=== PATIENT | female | born 1990 | race Caucasian/White ===

== ENCOUNTER 2017-02-16 15:33 | Emergency (ER) | payer BC, OTHER ==
[~2017-02-16] VITALS: Ht 162.6 cm; Wt 71.6 kg
[2017-02-16 15:37] VITALS: Ht 162.6 cm; Wt 71.6 kg
[2017-02-16] MEDS ORDERED: ONDANSETRON INJ 2 MG/ML 2 ML VIAL IV STA (15:58)
[2017-02-16] MEDS ORDERED: SODIUM CHLORIDE 0.9% 1000ML 1,000 ML IV ONE ×2 (16:00→19:45)
[2017-02-16] MEDS ORDERED: ACETAMINOPHEN IV 100 ML IV ONE (16:00)
[2017-02-16 16:51] LABS: BASO % 0.1 %; BASO ABS # 0.01 K/uL (0-0.2); COMPLETE YES; HEMATOCRIT 40.8 % (37-47); IG% 0.3 %; LYMPH % 4.4 %; LYMPH ABS # 0.51 K/uL (1.2-3.4); MEAN CELL VOLUME 88.1 fL (80-100); MEAN CORPUSCULAR HEMOGLOBIN 30.9 pg (25-34); MEAN PLATELET VOLUME 10.8 fL (7.4-10.4); MONO % 4.5 %; NEUT % 90.7 %; PLATELET COUNT 223 K/uL (130-400); RED BLOOD COUNT 4.63 M/uL (4.2-5.4); WHITE BLOOD COUNT 11.67 K/uL (4.8-10.8)
[2017-02-16 17:13] LABS: BUN/CREATININE RATIO 13.2 (10-20); CALCIUM 8.8 mg/dl (8.5-10.1); CREATININE 0.67 mg/dl (0.60-1.20); POTASSIUM 3.5 mmol/L (3.5-5.1)
[2017-02-16 17:15] LABS: ALB/GLOB RATIO 1.1 (0.9-2)
[2017-02-16 17:23] LABS: URINE APPEARANCE CLEAR (CLEAR); URINE BILIRUBIN NEG (NEG); URINE COLOR YELLOW; URINE NITRITE NEG (NEG); URINE SPECIFIC GRAVITY 1.022 (1.000-1.030); UROBILINOGEN NEG (NEG); ZZUR CULT IF INDIC CLEAN CATCH NO
[2017-02-16 17:25] LABS: MANUAL MICROSCOPIC REQUIRED? NO; REVIEW REQ? NO
--- NOTE | 2017-02-16 18:02 | DIAGNOSTIC IMAGING REPORT ---
ULTRASOUND OF THE PELVIS CLINICAL HISTORY: Pelvic pain. COMPARISON STUDY: Pelvic CT dated 06/17/2013. TECHNIQUE: Real-time, grayscale, and color flow sonography of the pelvis is performed both transabdominally and endovaginally. Images are reviewed in the transverse and longitudinal planes. FINDINGS: Uterus: The uterus is normal in size and echotexture, measuring 7.8 x 4.1 x 5.7 cm. Endometrium: The endometrium is normal in appearance, and the endometrial stripe is normal in thickness measuring up to 0.8 cm. Ovaries: The ovaries are normal in size and morphology. The right ovary measures 3.3 x 2.1 x 2.1 cm and the left ovary measures 2.9 x 1.7 x 1.8 cm. There are small ovarian follicles. Normal Doppler waveforms are shown within both ovaries. Pelvis: There is trace free fluid in the cul-de-sac. No concerning adnexal lesion is seen. IMPRESSION: 1. No acute sonographic abnormality is identified in the pelvis. 2. There is trace and likely physiologic free fluid in the cul-de-sac. Electronically signed by: Kirk Bernal M.D. 02/16/2017 6:01 PM Dictated Date/Time: 02/16/2017 6:00 PM
[2017-02-16] MEDS ORDERED: OPTIRAY 320 IV PRN (18:30)
--- NOTE | 2017-02-16 19:04 | DIAGNOSTIC IMAGING REPORT ---
CT SCAN OF THE ABDOMEN AND PELVIS WITH IV CONTRAST CLINICAL HISTORY: Fever. Lower abdominal pain. COMPARISON STUDY: Abdominal CT dated 06/17/2013. Pelvic ultrasound dated 02/16/2017. TECHNIQUE: Following the IV administration of 119 cc of Optiray 320, CT scan of the abdomen and pelvis is performed from the lung bases to the proximal femora. Images are reviewed in the axial, sagittal, and coronal planes. IV contrast was administered without complication. Automated dose control exposure was utilized. CT DOSE: 375.78 mGy.cm FINDINGS: Lung bases: The heart is normal in size and without pericardial effusion. The lung bases are clear. Bilateral breast implants are noted. Liver: The contrast-enhanced liver is normal in size, contour, and attenuation. Fatty infiltration is seen adjacent to falciform ligament. There is no intrahepatic biliary ductal dilatation. The hepatic veins and portal veins are patent. Gallbladder: Unremarkable. Spleen: Normal in size and attenuation. Pancreas: Unremarkable. Adrenal glands: Unremarkable. Kidneys: The contrast enhanced kidneys are normal in size and without hydronephrosis. A subcentimeter cortical hypodensity in the interpolar right kidney likely represents a cyst but is too small for definitive characterization. The kidneys enhance symmetrically. Abdominal vasculature: The abdominal aorta is normal in course and caliber. Bowel: The small bowel and colon are normal in course and caliber. The appendix is well-visualized and normal. Peritoneum: There is no intraperitoneal free air or abdominal ascites. There is a small fat-containing umbilical hernia. Lymphadenopathy: None. Pelvic viscera: The bladder, uterus, and adnexa are normal as visualized. There are bilateral ovarian follicles. Trace free fluid is seen in the cul-de-sac. Skeletal structures: No lytic or blastic lesions are seen. IMPRESSION: 1. There are no acute infectious or inflammatory findings in the abdomen or pelvis. 2. There is trace and likely physiologic free fluid in the cul-de-sac. Electronically signed by: Kirk Bernal M.D. 02/16/2017 7:02 PM Dictated Date/Time: 02/16/2017 6:58 PM
[2017-02-16] MEDS ORDERED: KETOROLAC TROMETHAMINE 30 MG/ML VIAL IV STA (19:43)
[2017-02-16] MEDS ORDERED: ONDANSETRON HOME PACK 4MG OD TAB PO ONE (19:45)
[2017-02-16 20:27] VITALS: BP 99/69; PULSE 89; TEMP 36.9; O2SAT 97
--- NOTE | 2017-02-16 21:18 | EMERGENCY ROOM VISIT NOTE ---
History First contact with patient: 15:43 Chief Complaint: ABDOMINAL PAIN Stated Complaint: ABD PAIN,FEVER 102 Nursing Triage Summary: pt awoke at 0300am with n/v/d and abd pain [facility] r/o luis migueley History of Present Illness The patient is a 26 year old female who presents to the Emergency Room with complaints of nausea, vomiting, diarrhea, and lower abdominal pain for roughly the past 12 hours. The patient states that she awoke around 3 AM with her symptoms and went to an urgent care clinic today. The patient was referred to the emergency department for evaluation of possible appendicitis. The patient has not had chest pain, chest tightness, shortness of breath. No upper abdominal tenderness. She denies chance of with her last menses being about one month ago. No vaginal drainage, irritation, bleeding, or discharge. The patient is not having dysuric symptoms or flank pain. She rates her current discomfort a 7/10. Her max temperature was 102F. She is not taking anything [id number] for her symptoms. She is without appetite and has not eaten today. She does not identify additional aggravating or alleviating factors. Review of Systems More than 10 systems were reviewed and otherwise negative with the exception of history of present illness. Past Medical/Surgical History Medical Problems: (1) Depression Family History No pertinent family history Social History Smoking Status: Never Smoker Alcohol Use: occasionally Marital Status: single Housing Status: lives with significant other Current/Historical Medications No Active Prescriptions or Reported Meds Allergies Coded Allergies: Codeine (Verified Adverse Reaction, Intermediate, chest pain, 02/16/17) Physical Exam Vital Signs Date Time Temp Pulse Resp B/P Pulse Ox O2 Delivery O2 Flow Rate FiO2 02/16/17 20:27 36.9 89 18 99/69 97 02/16/17 18:58 36.8 93 16 111/70 98 Room Air 02/16/17 17:48 95 16 123/73 98 Room Air 02/16/17 15:37 37.2 110 20 118/78 99 Room Air Pain Rating (0-10): 1.0 Physical Exam VITALS: Vitals are noted on the nurse's note and reviewed by myself. Vital signs stable. GENERAL: Well-developed, well-nourished, white female who appears moderately uncomfortable on exam. Patient is cooperative with the examination. HEAD: Normocephalic atraumatic. HEART: Regular rate and rhythm without murmurs gallops or rubs. LUNGS: Clear to auscultation bilaterally without wheezes, rales or rhonchi. No retractions or accessory muscle use. ABDOMEN: Positive normal bowel sounds x 4. Soft with positive right lower and left lower quadrant tenderness on palpation. No rebound or guarding. No CVA tenderness. MUSCULOSKELETAL: No muscle atrophy, erythema, or edema noted. Full range of motion without joint tenderness in all extremities. No tenderness to palpation. Normal gait. Strength 5/5 throughout. NEURO: Patient was alert and oriented to person place and time. CN II through XII grossly intact Medical Decision & Procedures ER Provider Diagnostic Interpretation: ULTRASOUND OF THE PELVIS CLINICAL HISTORY: Pelvic pain. COMPARISON STUDY: Pelvic CT dated 06/17/2013. TECHNIQUE: Real-time, grayscale, and color flow sonography of the pelvis is performed both transabdominally and endovaginally. Images are reviewed in the transverse and longitudinal planes. FINDINGS: Uterus: The uterus is normal in size and echotexture, measuring 7.8 x 4.1 x 5.7 cm. Endometrium: The endometrium is normal in appearance, and the endometrial stripe is normal in thickness measuring up to 0.8 cm. Ovaries: The ovaries are normal in size and morphology. The right ovary measures 3.3 x 2.1 x 2.1 cm and the left ovary measures 2.9 x 1.7 x 1.8 cm. There are small ovarian follicles. Normal Doppler waveforms are shown within both ovaries. Pelvis: There is trace free fluid in the cul-de-sac. No concerning adnexal lesion is seen. IMPRESSION: 1. No acute sonographic abnormality is identified in the pelvis. 2. There is trace and likely physiologic free fluid in the cul-de-sac. [~ rep ct add3]] ULTRASOUND OF THE PELVIS CLINICAL HISTORY: Pelvic pain. COMPARISON STUDY: Pelvic CT dated 06/17/2013. TECHNIQUE: Real-time, grayscale, and color flow sonography of the pelvis is performed both transabdominally and endovaginally. Images are reviewed in the transverse and longitudinal planes. FINDINGS: Uterus: The uterus is normal in size and echotexture, measuring 7.8 x 4.1 x 5.7 cm. Endometrium: The endometrium is normal in appearance, and the endometrial stripe is normal in thickness measuring up to 0.8 cm. Ovaries: The ovaries are normal in size and morphology. The right ovary measures 3.3 x 2.1 x 2.1 cm and the left ovary measures 2.9 x 1.7 x 1.8 cm. There are small ovarian follicles. Normal Doppler waveforms are shown within both ovaries. Pelvis: There is trace free fluid in the cul-de-sac. No concerning adnexal lesion is seen. IMPRESSION: 1. No acute sonographic abnormality is identified in the pelvis. 2. There is trace and likely physiologic free fluid in the cul-de-sac. CT SCAN OF THE ABDOMEN AND PELVIS WITH IV CONTRAST CLINICAL HISTORY: Fever. Lower abdominal pain. COMPARISON STUDY: Abdominal CT dated 06/17/2013. Pelvic ultrasound dated 02/16/2017. TECHNIQUE: Following the IV administration of 119 cc of Optiray 320, CT scan of the abdomen and pelvis is performed from the lung bases to the proximal femora. Images are reviewed in the axial, sagittal, and coronal planes. IV contrast was administered without complication. Automated dose control exposure was utilized. CT DOSE: 375.78 mGy.cm FINDINGS: Lung bases: The heart is normal in size and without pericardial effusion. The lung bases are clear. Bilateral breast implants are noted. Liver: The contrast-enhanced liver is normal in size, contour, and attenuation. Fatty infiltration is seen adjacent to falciform ligament. There is no intrahepatic biliary ductal dilatation. The hepatic veins and portal veins are patent. Gallbladder: Unremarkable. Spleen: Normal in size and attenuation. Pancreas: Unremarkable. Adrenal glands: Unremarkable. Kidneys: The contrast enhanced kidneys are normal in size and without hydronephrosis. A subcentimeter cortical hypodensity in the interpolar right kidney likely represents a cyst but is too small for definitive characterization. The kidneys enhance symmetrically. Abdominal vasculature: The abdominal aorta is normal in course and caliber. Bowel: The small bowel and colon are normal in course and caliber. The appendix is well-visualized and normal. Peritoneum: There is no intraperitoneal free air or abdominal ascites. There is a small fat-containing umbilical hernia. Lymphadenopathy: None. Pelvic viscera: The bladder, uterus, and adnexa are normal as visualized. There are bilateral ovarian follicles. Trace free fluid is seen in the cul-de-sac. Skeletal structures: No lytic or blastic lesions are seen. IMPRESSION: 1. There are no acute infectious or inflammatory findings in the abdomen or pelvis. 2. There is trace and likely physiologic free fluid in the cul-de-sac. Laboratory Results 02/16/17 15:20 Red Blood Count 4.63, Mean Corpuscular Volume 88.1, Mean Corpuscular Hemoglobin 30.9, Mean Corpuscular Hemoglobin Concent 35.0, Mean Platelet Volume 10.8, Neutrophils (%) (Auto) 90.7, Lymphocytes (%) (Auto) 4.4, Monocytes (%) (Auto) 4.5, Eosinophils (%) (Auto) 0.0, Basophils (%) (Auto) 0.1, Neutrophils # (Auto) 10.59, Lymphocytes # (Auto) 0.51, Monocytes # (Auto) 0.53, Eosinophils # (Auto) 0.00, Basophils # (Auto) 0.01 02/16/17 15:20 Test 02/16/17 15:20 02/16/17 17:09 White Blood Count 11.67 K/uL (4.8-10.8) Red Blood Count 4.63 M/uL (4.2-5.4) Hemoglobin 14.3 g/dL (12.0-16.0) Hematocrit 40.8 % (37-47) Mean Corpuscular Volume 88.1 fL (80-100) Mean Corpuscular Hemoglobin 30.9 pg (25-34) Mean Corpuscular Hemoglobin Concent 35.0 g/dl (32-36) Platelet Count 223 K/uL (130-400) Mean Platelet Volume 10.8 fL (7.4-10.4) Neutrophils (%) (Auto) 90.7 % Lymphocytes (%) (Auto) 4.4 % Monocytes (%) (Auto) 4.5 % Eosinophils (%) (Auto) 0.0 % Basophils (%) (Auto) 0.1 % Neutrophils # (Auto) 10.59 K/uL (1.4-6.5) Lymphocytes # (Auto) 0.51 K/uL (1.2-3.4) Monocytes # (Auto) 0.53 K/uL (0.11-0.59) Eosinophils # (Auto) 0.00 K/uL (0-0.5) Basophils # (Auto) 0.01 K/uL (0-0.2) RDW Standard Deviation 39.8 fL (36.4-46.3) RDW Coefficient of Variation 12.5 % (11.5-14.5) Immature Granulocyte % (Auto) 0.3 % Immature Granulocyte # (Auto) 0.03 K/uL (0.00-0.02) Anion Gap 10.0 mmol/L (3-11) Est Creatinine Clear Calc Drug Dose 121.3 ml/min Estimated GFR () 138.6 Estimated GFR (Non- 119.6 BUN/Creatinine Ratio 13.2 (10-20) Calcium Level 8.8 mg/dl (8.5-10.1) Total Bilirubin 0.6 mg/dl (0.2-1) Aspartate Amino Transf (AST/SGOT) 11 U/L (15-37) Alanine Aminotransferase (ALT/SGPT) 21 U/L (12-78) Alkaline Phosphatase 62 U/L (45-117) Total Protein 7.8 gm/dl (6.4-8.2) Albumin 4.1 gm/dl (3.4-5.0) Globulin 3.7 gm/dl (2.5-4.0) Albumin/Globulin Ratio 1.1 (0.9-2) Lipase 85 U/L (73-393) Urine Color YELLOW Urine Appearance CLEAR (CLEAR) Urine pH 5.0 (4.5-7.5) Urine Specific [place] 1.022 (1.000-1.030) Urine Protein NEG (NEG) Urine Glucose (UA) NEG (NEG) Urine Ketones 1+ (NEG) Urine Occult Blood TRACE (NEG) Urine Nitrite NEG (NEG) Urine Bilirubin NEG (NEG) Urine Urobilinogen NEG (NEG) Urine Leukocyte Esterase NEG (NEG) Urine WBC (Auto) 0 /hpf (0-5) Urine RBC (Auto) 0-4 /hpf (0-4) Urine Hyaline Casts (Auto) 1-5 /lpf (0-5) Urine Epithelial Cells (Auto) 5-10 /lpf (0-5) Urine Bacteria (Auto) NEG (NEG) Urine Test NEG (NEG) Medications Administered Medications (Trade) Dose Ordered Sig/Joseph Route Start Time Stop Time Status Last Admin Dose Admin Sodium Chloride (Nss 1000ml) 1,000 ml @ 999 mls/hr Q1H1M ONCE IV 02/16/17 16:00 02/16/17 17:00 DC 02/16/17 16:18 999 MLS/HR Ondansetron HCl 4 mg 4 mg NOW STAT IV 02/16/17 15:58 02/16/17 16:02 DC 02/16/17 16:18 4 MG Acetaminophen 100 ml @ 400 mls/hr NOW ONCE IV 02/16/17 16:00 02/16/17 16:14 DC 02/16/17 16:30 400 MLS/HR Sodium Chloride (Nss 1000ml) 1,000 ml @ 999 mls/hr Q1H1M ONCE IV 02/16/17 19:45 02/16/17 20:45 DC 02/16/17 19:51 999 MLS/HR Ketorolac Tromethamine (Toradol Inj) 30 mg NOW STAT IV 02/16/17 19:43 02/16/17 19:44 DC 02/16/17 19:52 30 MG Ondansetron HCl (ZOFRAN ODT 4MG Home Pack) 1 homepack UD ONCE PO 02/16/17 19:45 02/16/17 19:46 DC 02/16/17 19:52 1 HOMEPACK ED Course Physical exam and history were performed. Nursing notes and EMR were reviewed. Patient appears to have lower abdominal pain for the past 12 hours. She has had a fever and is tender on palpation. IV access was established and labs were obtained. The patient was hydrated and medicated as above. Ultrasound and CT scans were ordered. The patient's blood work is as above and was reviewed. She does have a very slightly elevated white blood cell count. She does not have a significant anemia, bandemia, or gross electrolyte imbalance. Lipase and transaminases are nondiagnostic. Urine is without evidence of infection. She is not . The patient's ultrasound is as above and is without acute findings. Additionally her CT scan with contrast does not show acute surgical findings. Repeat serial abdominal examination shows improvement of her symptoms after hydration and analgesia. The patient overall appears well for discharge home. Clinically I suspect a viral or possible foodborne etiology of her symptoms. She will be given a home pack of Zofran and instructions to follow with her PCP this week. She was otherwise invited back to the emergency department with any new, worsening, or concerning symptoms. The chart was completed utilizing [employer] Voice Recognition Software. Grammatical errors, random word insertions, pronoun errors, and incomplete sentences are an occasional consequence of this system due to software limitations, ambient noise, and hardware issues. Any formal questions or concerns about the content, text, or information contained within the body of this dictation should be directly addressed to the provider for clarification. . Medical Decision Differential diagnosis: Etiologies such as appendicitis, diverticulitis, PUD, biliary pathology, UTI, pancreatitis, obstruction, mesenteric ischemia, aortic pathology, infections, inflammatory bowel disease, renal colic, as well as others were entertained. Impression Primary Impression: Lower abdominal pain Departure Information Dispostion Home / Self-Care Condition GOOD Prescriptions No Active Prescriptions or Reported Meds Forms HOME CARE DOCUMENTATION FORM, IMPORTANT VISIT INFORMATION Patient Instructions My [facility] Additional Instructions You were seen and evaluated today on an emergency basis only. This is not a substitute for, or an effort to provide, complete comprehensive medical care. It is not possible to recognize and treat all injuries or illnesses in a single emergency department visit. For this reason it is recommended that you followup with your primary care physician this week for ongoing care and evaluation. For baseline pain relief you may alternate ibuprofen and acetaminophen every 4 hours for pain control. Take 600 mg ibuprofen (Advil) and then 4 hours later take 1000 mg acetaminophen (Tylenol). Do not take more than 3000 mg acetaminophen in a single day. Zofran (homepack) 1 tablet every 6 hrs as needed for nausea. You are welcome to return to the emergency department anytime with new, worsening, or concerning symptoms.
== END 2017-02-16 20:28 | disposition home or self-care (01) ==
LOC: C.EDB 15:34 → C.EDC 20:28
DX: R10.30 Lower abdominal pain, unspecified (principal); F32.9 Major depressive disorder, single episode, unspecified; Z88.5 Allergy status to narcotic agent

== ENCOUNTER 2022-04-11 07:34 | Inpatient (IN) ==
[2022-04-11] MEDS ORDERED: OXYTOCIN 30 UNITS/500 ML BAG IV PRN (07:46)
[2022-04-11] MEDS ORDERED: DINOPROSTONE 10 MG INSERT PV ONE (07:46)
--- NOTE | 2022-04-11 08:15 | History & Physical Report ---
Date of Service April 11, 2022 Assessment & Plan (1) Insulin dependent gestational diabetes mellitus (GDM), antepartum: Plan: 31 yo at 39.2 wks, IOL for GDMA2 VSS Afebrile doing well FHR reassuring GBS neg, Covid Neg, Cervix unfavorable Plan to admit, monitor, labs, Insulin SS as needed Cervidil for cervical ripening, discussed what to expect All questions were answered. (2) Elective induction of labor planned: Admission and Anticipated Discharge Date Admission Date: April 11, 2022 History of Present Illness Primary Care Provider: Ernesto Neumann MD Patient is a 31 yo at 39.2 wks with GDMA2, on insulin, IOL No complaints No ctxs/ LOF/VB +FM's GBS Negative COVID Negative Allergies Allergy/AdvReac Type Severity Reaction Status Date / Time codeine AdvReac Intermediate chest pain Verified 08/05/18 07:34 Home Medications Medication Instructions Recorded Confirmed Type omeprazole 20 mg capsule,delayed 20 mg PO DAILY 08/05/18 08/05/18 History release iron,carbonyl 65 mg-vitamin C 125 1 tab PO DAILY #30 tabs 03/04/22 Rx mg tablet,delayed release (Vitron-C) ondansetron HCl 4 mg tablet 4 mg PO Q4 PRN nausea and vomiting 03/04/22 Rx 5 weeks #20 tabs vitamins no.147-iron 1 tab PO DAILY #90 tabs 03/04/22 Rx gluconate 13 mg-folic acid 1 mg tablet Patient History Medical History Anxiety GERD (gastroesophageal reflux disease) Surgical History H/O breast augmentation Family History Grandfather (Maternal) History of coronary artery bypass graft Social History Smoking Status: Never smoker Hx Alcohol Use: No Hx Substance Use: No Preferred Language: Pashto Communication Ability: Effective Radio Director Required: No Beliefs That Will Affect Care: None marital status: Current Living Situation: Spouse and Family Current Living Situation Comment: building of home will live with family until it's finished Feels Safe at Home: No Assistive Devices: None OB History FT in 2018 by myself, no complications [employer] History No h/o genital herpes, Chlamydi nor GC Review of Systems as per Subjective / HPI Physical Exam Constitutional: WD/WN, vitals as above well developed and well nourished Comfortable NAD Gastrointestinal (Abdomen): normal bowel sounds, soft, nontender, no hepatosplenomegaly (Gravid, javed 7 lb) Genitourinary: normal external appearance OB Exam Abdomen: + vertex Manual OB Exam: + cervical dilation 1 cm, + cervical effacement 20% and + station high OB Exam Monitor Tracing: + external uterine monitor used and + category I Results & Data ([facility]) Vital Signs (Past 12 Hours) Vital Signs Pulse BP 04/11/22 08:01 100 H 118/74
[2022-04-11] MEDS: LACTATED RINGER'S 1,000 ML IV PRN (08:16)
[2022-04-11 08:22] LABS: Hematocrit (blood only) 31.4 % (34.1-44.9); Hemoglobin 10.7 g/dl (12.0-16.0); Mean Corpuscular Hemoglobin 30.5 pg (25.0-34.0); Mean Corpuscular Hgb Conc 34.1 g/dL (32.0-36.0); Mean Corpuscular Volume 89.5 fL (80.0-100.0); Mean Platelet Volume 11.1 fL (9.4-12.3); Platelet Count 205 K/uL (130-400); RDW Coefficient of Variation 14.1 % (11.5-14.5); Red Blood Count 3.51 M/uL (3.93-5.22); White Blood Count 11.36 K/ul (4.8-10.8)
--- NOTE | 2022-04-11 08:36 | Obstetrical Progress Note ---
Date of Service April 11, 2022 Assessment & Plan Admission and Anticipated Discharge Date Admission Date: April 11, 2022 Subjective Cervidil is placed. FS: 94, 2 hours pp Results & Data ([facility]) Vital Signs (Past 12 Hours) Vital Signs Temp Pulse Resp BP 04/11/22 08:01 36.6 C 100 H 20 118/74
[2022-04-11] MEDS ORDERED: GLUCOSE 10 TAB/TUBE PO PRN (08:45)
[2022-04-11] MEDS ORDERED: DEXTROSE 50% 50 ML SYRINGE IV PRN (08:45)
[2022-04-11] MEDS ORDERED: GLUCOSE 40% GEL 15 GM TUBE PO PRN (08:45)
[2022-04-11] MEDS ORDERED: GLUCAGON FOR INJ 1 MG VIAL IM PRN (08:45)
[2022-04-11] MEDS ORDERED: CARBOHYDRATES FOR HYPOGLYCEMIA PO PRN (08:45)
[2022-04-11] MEDS ORDERED: Patient's HEIGHT &/or WEIGHT Needed SCH (09:00)
[2022-04-11 09:02] LABS: Alanine Aminotransferase 11 U/L (7-52); Albumin Globulin Ratio 1.3 (0.9-2); Albumin Level 3.4 gm/dl (3.4-5.0); Alkaline Phosphatase 125 U/L (34-104); Anion Gap 9 (3-11); Aspartate Aminotransferase 11 U/L (13-39); BUN Creatinine Ratio 18.5 (10-20); Bilirubin,Total 0.3 mg/dl (0.2-1.0); Blood Urea Nitrogen 10 mg/dl (6-23); Calcium 8.3 mg/dl (8.5-10.1); Carbon Dioxide 21 mmol/L (21-32); Chloride 106 mmol/L (98-107); Est GFR (African American) 143.7 ml/min; Globulin 2.6 gm/dl (2.5-4.0); Glucose 99 mg/dl (70-99(Fasting)); Potassium 3.6 mmol/L (3.5-5.1); Sodium 136 mmol/L (136-145)
[2022-04-11] MEDS ORDERED: INSULIN HUMAN REGULAR SC SCH (11:30)
[2022-04-11] MEDS ORDERED: BUTORPHANOL TARTRATE 1 MG/ML VIAL IV PRN (18:06)
--- NOTE | 2022-04-11 18:06 | Obstetrical Progress Note ---
Date of Service April 11, 2022 Assessment & Plan Admission and Anticipated Discharge Date Admission Date: April 11, 2022 Subjective Patient is reevaluated She started to feel ctxs since 3 pm Not very painful, does not need pain meds No VB/LOF +FM's FHR categ I [place]: ctxs q 2-3 min, does not feel them all and palpates mild FS: WNL, Lab Results 04/11/22 04/11/22 04/11/22 Range/Units 08:10 08:10 08:20 WBC 11.36 H (4.8-10.8) K/ul RBC 3.51 L (3.93-5.22) M/uL Hgb 10.7 L (12.0-16.0) g/dl Hct 31.4 L (34.1-44.9) % MCV 89.5 (80.0-100.0) fL MCH 30.5 (25.0-34.0) pg MCHC 34.1 (32.0-36.0) g/dL RDW Std Deviation 46.0 (36.4-46.3) fL RDW Coeff of Marisol 14.1 (11.5-14.5) % Plt Count 205 (130-400) K/uL MPV 11.1 (9.4-12.3) fL Sodium 136 (136-145) mmol/L Potassium 3.6 (3.5-5.1) mmol/L Chloride 106 (98-107) mmol/L Carbon Dioxide 21 (21-32) mmol/L Anion Gap 9 (3-11) BUN 10 (6-23) mg/dl Creatinine 0.54 L (0.6-1.2) mg/dl Est Cr Clr Drug Dosing Not Reportable Est GFR ( Amer) 143.7 ml/min Est GFR (Non-Af Amer) 124.0 ml/min BUN/Creatinine Ratio 18.5 (10-20) Glucose 99 (70-99(Fasting)) mg/dl POC Glucose 94 (70-99) mg/dl Calcium 8.3 L (8.5-10.1) mg/dl Total Bilirubin 0.3 (0.2-1.0) mg/dl AST 11 L (13-39) U/L ALT 11 (7-52) U/L Alkaline Phosphatase 125 H (34-104) U/L Total Protein 6.0 (6.0-8.3) gm/dl Albumin 3.4 (3.4-5.0) gm/dl Globulin 2.6 (2.5-4.0) gm/dl Albumin/Globulin Ratio 1.3 (0.9-2) 04/11/22 04/11/22 Range/Units 12:24 17:12 WBC (4.8-10.8) K/ul RBC (3.93-5.22) M/uL Hgb (12.0-16.0) g/dl Hct (34.1-44.9) % MCV (80.0-100.0) fL MCH (25.0-34.0) pg MCHC (32.0-36.0) g/dL RDW Std Deviation (36.4-46.3) fL RDW Coeff of Marisol (11.5-14.5) % Plt Count (130-400) K/uL MPV (9.4-12.3) fL Sodium (136-145) mmol/L Potassium (3.5-5.1) mmol/L Chloride (98-107) mmol/L Carbon Dioxide (21-32) mmol/L Anion Gap (3-11) BUN (6-23) mg/dl Creatinine (0.6-1.2) mg/dl Est Cr Clr Drug Dosing Est GFR ( Amer) ml/min Est GFR (Non-Af Amer) ml/min BUN/Creatinine Ratio (10-20) Glucose (70-99(Fasting)) mg/dl POC Glucose 83 79 (70-99) mg/dl Calcium (8.5-10.1) mg/dl Total Bilirubin (0.2-1.0) mg/dl AST (13-39) U/L ALT (7-52) U/L Alkaline Phosphatase (34-104) U/L Total Protein (6.0-8.3) gm/dl Albumin (3.4-5.0) gm/dl Globulin (2.5-4.0) gm/dl Albumin/Globulin Ratio (0.9-2) Continue to monitor closely Results & Data ([place]) Vital Signs (Past 12 Hours) Vital Signs Temp Pulse Resp BP O2 Del Method 04/11/22 10:27 36.6 C 100 H 20 118/74 Room Air 04/11/22 08:01 36.6 C 100 H 20 118/74
[2022-04-12] MEDS ORDERED: FLUCONAZOLE 50 MG TAB PO ONE (00:28)
[2022-04-12] MEDS ORDERED: ONDANSETRON INJ 2 MG/ML 2 ML VIAL IV PRN (00:28)
[2022-04-12] MEDS ORDERED: diphenhydrAMINE Capsule 25 MG CAP PO ONE (00:28)
--- NOTE | 2022-04-12 00:32 | Obstetrical Progress Note ---
Date of Service April 12, 2022 Assessment & Plan Admission and Anticipated Discharge Date Admission Date: April 11, 2022 Subjective Patient is reevaluated She got more painful and received Stadol. She slept for 1 hour and woke up. Ctxs spaced out. Pain is 4-5 /10, not too bad for her. No LOF/VB +FM's FHR categ I [place]: ctxs q 2-4 min, patient feels them mild VE; no significant change 2 cm/ 30%/ -3, posterior [place] d/c suggesting yola Requesting Benadryl to sleep Continue to monitor closely Start PO Cytotec Diflucan po once for yola Results & Data ([facility]) Vital Signs (Past 12 Hours) Vital Signs Temp Pulse Resp BP 04/12/22 00:06 86 111/72 04/11/22 23:17 18 04/11/22 23:17 18 04/11/22 22:30 18 04/11/22 22:30 37.0 C 18 04/11/22 19:26 18 04/11/22 19:26 36.8 C 18 04/11/22 19:26 77 04/11/22 19:26 128/74
[2022-04-12] MEDS: miSOPROStoL 50 MCG TAB PO SCH ×2 (01:08→03:54)
[2022-04-12] MEDS ORDERED: OXYTOCIN 30 UNITS/500 ML BAG IV PRN (07:49)
[2022-04-12] MEDS: LACTATED RINGER'S 1,000 ML IV PRN ×3 (08:00→14:44)
--- NOTE | 2022-04-12 08:57 | Labor Progress Brief Note ---
Date of Service April 12, 2022 Assessment & Plan Admission and Anticipated Discharge Date Admission Date: April 11, 2022 Physical Exam Genitourinary: OB Exam Abdomen: + estimated weight (8 lbs.) Manual OB Exam: + cervical dilation 1 cm and 2 cm, + cervical effacement 50% and + station high OB Exam Monitor Tracing: + external FHT monitor used, + external uterine monitor used, + category I and + normal FHT variability Cervix posterior and firm will start Oxytocin for augmentation of ctx Results & Data ([facility]) Vital Signs (Past 12 Hours) Vital Signs Temp Pulse Resp BP 04/12/22 07:15 36.5 C 18 04/12/22 07:15 18 04/12/22 07:15 36.5 C 18 04/12/22 07:23 90 118/72 04/12/22 05:00 18 04/12/22 05:00 18 04/12/22 04:00 18 04/12/22 04:00 36.8 C 18 04/12/22 03:34 94 H 113/56 L 04/12/22 00:06 86 111/72 04/11/22 23:17 18 04/11/22 23:17 18 04/11/22 22:30 18 04/11/22 22:30 37.0 C 18
[2022-04-12] MEDS ORDERED: BUPIVACAINE 0.25% 30 ML VIAL ONE (10:21)
[2022-04-12] MEDS ORDERED: SODIUM CHLORIDE 0.9% INJ 10 ML VIAL ONE (10:21)
[2022-04-12] MEDS ORDERED: LIDOCAINE 2%/EPINEPHRINE 1:200,000 20 ML SDV ONE (10:21)
[2022-04-12] MEDS ORDERED: fentaNYL citrate 100 MCG/2 ML VIAL ONE (10:21)
[2022-04-12] MEDS ORDERED: ePHEDrine sulfate 50 MG/ML AMP ONE (10:21)
[2022-04-12] MEDS ORDERED: fentaNYL 2MCG/ML ROPIVACAINE 1.25MG/ML 100 ML BAG EPI ONE (10:22)
--- NOTE | 2022-04-12 11:26 | Anesthesiology Consultation ---
Date of Service April 12, 2022 Assessment & Plan Chart Review Chart Review: Acceptable Risk for Labor Epidural Consults Requested none History Height/Weight Height: 5 ft 4 in Weight: 88.997 kg Allergies Allergy/AdvReac Type Severity Reaction Status Date / Time No Known Allergies Allergy Unverified 04/11/22 10:26 Medications Home Medications Medication Instructions Recorded Confirmed Last Taken omeprazole 20 mg capsule,delayed 20 mg PO DAILY 08/05/18 04/11/22 04/11/22 release 0600 iron,carbonyl 65 mg-vitamin C 125 1 tab PO DAILY #30 tabs 03/04/22 04/11/22 04/11/22 06:00 mg tablet,delayed release (Vitron-C) ondansetron HCl 4 mg tablet 4 mg PO Q4 PRN nausea and vomiting 03/04/22 Unknown 5 weeks #20 tabs vitamins no.147-iron 1 tab PO DAILY #90 tabs 03/04/22 04/11/22 04/11/22 06:00 gluconate 13 mg-folic acid 1 mg tablet Active Medications Generic Name Dose Route Start Last Admin Trade Name Freq PRN Reason Stop Dose Admin Butorphanol Tartrate 1 mg 04/11/22 18:06 04/11/22 22:13 Butorphanol Tartrate 1 Mg/Ml Vial IV 05/11/22 18:05 1 mg Q3HWA PRN Administration Pain Lactated Ringer's 1,000 mls @ 125 mls/hr 04/11/22 07:46 04/12/22 11:26 Lr IV 04/13/22 07:45 125 mls/hr .Q8H PRN Infusion L&D Protocol Protocol Oxytocin 30 units in 500 mls @ 7 mls/hr 04/12/22 07:49 04/12/22 10:40 Pitocin IV 04/14/22 07:48 0.42 units/hr .Q24H PRN 7 mls/hr Labor Induction/Augmentation Titration Protocol 0.42 UNITS/HR Misoprostol 50 mcg 04/12/22 00:00 04/12/22 03:54 Misoprostol 50 Mcg Tab PO 05/12/22 00:00 50 mcg Q4 ALESSANDRO Administration Ondansetron HCl 4 mg 04/12/22 00:28 04/12/22 01:02 Ondansetron Inj 2 Mg/Ml 2 Ml Vial IV 05/12/22 00:27 4 mg Q4H PRN Administration Nausea Past Medical History Medical History Anxiety GERD (gastroesophageal reflux disease) Past Family History Family History Grandfather (Maternal) History of coronary artery bypass graft Past Surgical History Surgical History H/O breast augmentation Social History Smoking Status: Never smoker Hx Alcohol Use: No Hx Substance Use: No Physical Exam Vital Signs Last Vital Signs Temp 36.8 C 04/12/22 10:35 Pulse 81 04/12/22 11:24 Resp 18 04/12/22 11:12 BP 116/59 L 04/12/22 11:23 Pulse Ox 99 04/12/22 11:24 O2 Del Method 04/11/22 10:27 Testing Laboratory Results 04/11/22 08:10 04/11/22 08:10 04/12/22 04/12/22 04/12/22 10:46 09:05 05:18 POC Glucose 87 88 108 H 04/12/22 01:05 POC Glucose 86
[2022-04-12] MEDS ORDERED: NALBUPHINE HCL INJ 10 MG/ML AMP IV PRN (11:30)
[2022-04-12] MEDS ORDERED: NALOXONE HCL 1 MG in SODIUM CHLORIDE 0.9% 1000ML 1,000 ML IV PRN (11:30)
[2022-04-12] MEDS ORDERED: fentaNYL 2MCG/ML ROPIVACAINE 1.25MG/ML 100 ML BAG EPI PRN (11:30)
[2022-04-12] MEDS ORDERED: NALOXONE HCL 0.4 MG/1 ML VIAL/CARP IV PRN (11:30)
[2022-04-12] MEDS ORDERED: ePHEDrine sulfate 50 MG/ML AMP IV PRN (11:30)
[2022-04-12] MEDS ORDERED: diphenhydrAMINE 50 MG/ML VIAL IV PRN (11:30)
--- NOTE | 2022-04-12 13:13 | Labor Progress Brief Note ---
Date of Service April 12, 2022 Assessment & Plan Admission and Anticipated Discharge Date Admission Date: April 11, 2022 Physical Exam Genitourinary: Manual OB Exam: + cervical dilation 3 cm, + cervical effacement 50%, + station high and + amniotic fluid bloody OB Exam Monitor Tracing: + external FHT monitor used, + external uterine monitor used, + category I and + normal FHT variability ultrasound to confirm vertex Results & Data ([facility]) Vital Signs (Past 12 Hours) Vital Signs Temp Pulse Resp BP Pulse Ox 04/12/22 07:15 36.5 C 18 04/12/22 13:09 88 98 04/12/22 13:07 77 99/64 L 04/12/22 13:04 84 98 04/12/22 12:59 85 98 04/12/22 12:54 85 99 04/12/22 12:53 89 116/66 04/12/22 12:49 88 99 04/12/22 12:44 83 99 04/12/22 12:39 77 98 04/12/22 12:37 74 107/58 L 04/12/22 12:34 81 99 04/12/22 12:29 80 98 04/12/22 12:24 75 99 04/12/22 12:19 83 98 04/12/22 12:14 79 99 04/12/22 12:09 94 H 99 04/12/22 12:05 77 108/60 04/12/22 12:04 75 97 04/12/22 12:00 80 16 107/60 04/12/22 11:50 16 04/12/22 11:50 16 04/12/22 11:59 81 96 04/12/22 11:55 76 112/59 L 04/12/22 11:54 80 97 04/12/22 11:49 75 112/58 L 96 04/12/22 11:47 75 115/59 L 04/12/22 11:45 70 116/59 L 04/12/22 11:44 79 97 04/12/22 11:43 72 16 117/60 04/12/22 11:41 78 100/58 L 04/12/22 11:39 82 117/62 98 04/12/22 11:37 79 105/56 L 04/12/22 11:35 79 18 114/58 L 04/12/22 11:34 79 98 04/12/22 11:33 78 118/59 L 04/12/22 11:31 85 109/58 L 04/12/22 11:29 76 16 113/55 L 98 04/12/22 11:27 82 112/59 L 04/12/22 11:25 88 119/59 L 04/12/22 11:24 81 99 04/12/22 11:23 89 18 116/59 L 04/12/22 11:21 84 120/60 04/12/22 11:19 98 H 120/63 98 04/12/22 11:17 96 H 112/59 L 04/12/22 11:15 95 H 110/61 04/12/22 11:14 98 H 97 04/12/22 11:13 91 H 119/68 04/12/22 11:12 18 04/12/22 11:12 18 04/12/22 11:11 85 122/65 04/12/22 11:10 18 04/12/22 11:10 18 04/12/22 11:09 83 116/56 L 97 04/12/22 11:07 90 128/78 04/12/22 11:05 85 125/79 04/12/22 11:04 84 96 04/12/22 11:03 87 125/74 04/12/22 11:01 90 124/72 04/12/22 10:59 86 117/69 98 04/12/22 10:57 85 127/66 04/12/22 10:55 78 124/71 04/12/22 10:54 84 97 04/12/22 10:53 81 107/65 04/12/22 10:51 78 108/66 04/12/22 10:49 76 117/67 99 04/12/22 10:47 82 114/60 04/12/22 10:45 81 119/67 04/12/22 10:44 81 98 04/12/22 10:39 80 98 04/12/22 10:35 18 04/12/22 10:35 36.8 C 18 04/12/22 10:34 84 97 04/12/22 10:28 88 100 04/12/22 10:23 75 04/12/22 10:23 81 119/74 99 04/12/22 10:18 83 99 07/21/22 10:08 82 132/60 07/21/22 09:54 86 105/58 L 04/12/22 09:23 80 108/64 04/12/22 09:01 86 18 118/65 04/12/22 07:15 18 04/12/22 07:15 36.5 C 04/12/22 07:23 90 118/72 04/12/22 05:00 18 04/12/22 05:00 18 04/12/22 04:00 18 04/12/22 04:00 36.8 C 04/12/22 03:34 94 H 113/56 L
--- NOTE | 2022-04-12 17:22 | Labor Progress Brief Note ---
Date of Service April 12, 2022 Assessment & Plan Admission and Anticipated Discharge Date Admission Date: April 11, 2022 Physical Exam Genitourinary: Manual OB Exam: + cervical dilation 5 cm, + cervical effacement 80% and + station -2 OB Exam Monitor Tracing: + external FHT monitor used, + external uterine monitor used, + category I, + normal FHT variability and + early decelerations present Results & Data ([facility]) Vital Signs (Past 12 Hours) Vital Signs Temp Pulse Resp BP Pulse Ox 04/12/22 07:15 36.5 C 18 04/12/22 17:14 83 98 04/12/22 17:09 89 98 04/12/22 17:08 81 118/64 04/12/22 17:04 91 H 98 04/12/22 17:01 18 04/12/22 17:01 37.0 C 18 04/12/22 16:59 78 96 04/12/22 16:54 81 96 04/12/22 16:53 75 108/57 L 04/12/22 16:49 80 98 04/12/22 16:44 76 97 04/12/22 16:39 78 98 04/12/22 16:37 78 106/59 L 04/12/22 16:31 18 04/12/22 16:31 18 04/12/22 16:34 79 97 04/12/22 16:00 18 04/12/22 16:00 18 04/12/22 16:29 75 97 04/12/22 16:24 89 98 04/12/22 16:23 86 103/54 L 04/12/22 16:19 80 98 04/12/22 16:14 78 99 04/12/22 16:09 87 98 04/12/22 16:07 92 H 112/71 04/12/22 16:04 81 95 04/12/22 15:59 79 96 04/12/22 15:54 83 96 04/12/22 15:53 81 107/59 L 04/12/22 15:49 81 96 04/12/22 15:44 84 97 04/12/22 15:39 78 97 04/12/22 15:38 81 109/64 04/12/22 15:34 80 95 04/12/22 15:30 18 04/12/22 15:30 18 04/12/22 15:29 76 96 07/21/22 15:05 18 04/12/22 15:05 36.9 C 18 04/12/22 15:24 82 111/68 97 04/12/22 15:19 82 96 04/12/22 15:14 83 97 04/12/22 15:09 79 98 04/12/22 15:07 77 99/53 L 04/12/22 15:04 81 98 04/12/22 15:00 18 04/12/22 15:00 18 04/12/22 14:59 91 H 96 04/12/22 14:54 82 98 04/12/22 14:52 81 116/62 04/12/22 14:49 81 98 04/12/22 14:44 82 98 04/12/22 14:43 80 117/63 04/12/22 14:39 84 98 04/12/22 14:34 80 98 04/12/22 14:31 18 04/12/22 14:31 18 04/12/22 14:29 78 98 04/12/22 14:24 76 98 04/12/22 14:19 74 98 04/12/22 14:14 77 99 04/12/22 14:09 86 98 04/12/22 14:07 81 106/64 04/12/22 14:04 82 98 04/12/22 14:01 18 04/12/22 14:01 18 04/12/22 13:59 90 97 04/12/22 13:54 78 97 04/12/22 13:31 16 04/12/22 13:31 16 04/12/22 13:52 78 110/64 04/12/22 13:49 77 96 04/12/22 13:44 74 97 04/12/22 12:31 18 04/12/22 12:31 18 04/12/22 13:00 36.8 C 18 04/12/22 13:39 82 98 04/12/22 13:38 75 119/59 L 04/12/22 13:34 90 97 04/12/22 13:29 79 96 04/12/22 13:24 83 98 04/12/22 13:19 69 98 04/12/22 13:14 80 98 04/12/22 13:09 88 98 04/12/22 13:07 77 99/64 L 04/12/22 13:04 84 98 04/12/22 12:59 85 98 04/12/22 12:54 85 99 04/12/22 12:53 89 116/66 04/12/22 12:49 88 99 04/12/22 12:44 83 99 04/12/22 12:39 77 98 04/12/22 12:37 74 107/58 L 04/12/22 12:34 81 99 04/12/22 12:29 80 98 04/12/22 12:24 75 99 04/12/22 12:19 83 98 04/12/22 12:14 79 99 04/12/22 12:09 94 H 99 04/12/22 12:05 77 108/60 04/12/22 12:04 75 97 04/12/22 12:00 80 16 107/60 04/12/22 11:50 16 04/12/22 11:50 16 04/12/22 11:59 81 96 04/12/22 11:55 76 112/59 L 04/12/22 11:54 80 97 04/12/22 11:49 75 112/58 L 96 04/12/22 11:47 75 115/59 L 04/12/22 11:45 70 116/59 L 04/12/22 11:44 79 97 04/12/22 11:43 72 16 117/60 04/12/22 11:41 78 100/58 L 04/12/22 11:39 82 117/62 98 04/12/22 11:37 79 105/56 L 04/12/22 11:35 79 18 114/58 L 04/12/22 11:34 79 98 04/12/22 11:33 78 118/59 L 04/12/22 11:31 85 109/58 L 04/12/22 11:29 76 16 113/55 L 98 04/12/22 11:27 82 112/59 L 04/12/22 11:25 88 119/59 L 04/12/22 11:24 81 99 04/12/22 11:23 89 18 116/59 L 04/12/22 11:21 84 120/60 04/12/22 11:19 98 H 120/63 98 04/12/22 11:17 96 H 112/59 L 04/12/22 11:15 95 H 110/61 07/22 11:14 98 H 97 04/12/22 11:13 91 H 119/68 04/12/22 11:12 18 04/12/22 11:12 18 04/12/22 11:11 85 122/65 04/12/22 11:10 18 04/12/22 11:10 18 04/12/22 11:09 83 116/56 L 97 04/12/22 11:07 90 128/78 04/12/22 11:05 85 125/79 04/12/22 11:04 84 96 04/12/22 11:03 87 125/74 04/12/22 11:01 90 124/72 04/12/22 10:59 86 117/69 98 04/12/22 10:57 85 127/66 04/12/22 10:55 78 124/71 04/12/22 10:54 84 97 04/12/22 10:53 81 107/65 04/12/22 10:51 78 108/66 04/12/22 10:49 76 117/67 99 04/12/22 10:47 82 114/60 04/12/22 10:45 81 119/67 04/12/22 10:44 81 98 04/12/22 10:39 80 98 04/12/22 10:35 18 04/12/22 10:35 36.8 C 18 04/12/22 10:34 84 97 04/12/22 10:28 88 100 04/12/22 10:23 75 04/12/22 10:23 81 119/74 99 04/12/22 10:18 83 99 04/12/22 10:08 82 132/60 04/12/22 09:54 86 105/58 L 04/12/22 09:23 80 108/64 04/12/22 09:01 86 18 118/65 04/12/22 07:15 18 04/12/22 07:15 36.5 C 18 04/12/22 07:23 90 118/72
--- NOTE | 2022-04-12 18:02 | Labor Progress Brief Note ---
Date of Service April 12, 2022 Assessment & Plan Admission and Anticipated Discharge Date Admission Date: April 11, 2022 Physical Exam Genitourinary: Manual OB Exam: + cervical dilation 9 cm and 10 cm, + cervical effacement 100%, + station 0 and + amniotic fluid clear and bloody OB Exam Monitor Tracing: + external FHT monitor used, + external uterine monitor used, + category I and + normal FHT variability anterior rim Results & Data ([facility]) Vital Signs (Past 12 Hours) Vital Signs Temp Pulse Resp BP Pulse Ox 04/12/22 07:15 36.5 C 18 04/12/22 17:59 96 H 98 04/12/22 17:54 103 H 99 04/12/22 17:52 88 107/65 04/12/22 17:49 90 97 04/12/22 17:44 99 H 96 04/12/22 17:39 95 H 99 04/12/22 17:37 90 126/73 04/12/22 17:30 16 04/12/22 17:30 16 04/12/22 17:34 86 98 04/12/22 17:29 91 H 97 04/12/22 17:24 94 H 98 04/12/22 17:23 93 H 113/75 04/12/22 17:19 78 98 04/12/22 17:14 83 98 04/12/22 17:09 89 98 04/12/22 17:08 81 118/64 04/12/22 17:04 91 H 98 04/12/22 17:01 18 04/12/22 17:01 37.0 C 18 04/12/22 16:59 78 96 04/12/22 16:54 81 96 04/12/22 16:53 75 108/57 L 04/12/22 16:49 80 98 04/12/22 16:44 76 97 04/12/22 16:39 78 98 04/12/22 16:37 78 106/59 L 04/12/22 16:31 18 04/12/22 16:31 18 04/12/22 16:34 79 97 04/12/22 16:00 18 04/12/22 16:00 18 04/12/22 16:29 75 97 04/12/22 16:24 89 98 04/12/22 16:23 86 103/54 L 04/12/22 16:19 80 98 04/12/22 16:14 78 99 04/12/22 16:09 87 98 04/12/22 16:07 92 H 112/71 04/12/22 16:04 81 95 04/12/22 15:59 79 96 04/12/22 15:54 83 96 04/12/22 15:53 81 107/59 L 04/12/22 15:49 81 96 04/12/22 15:44 84 97 04/12/22 15:39 78 97 04/12/22 15:38 81 109/64 04/12/22 15:34 80 95 04/12/22 15:30 18 04/12/22 15:30 18 04/12/22 15:29 76 96 04/12/22 15:05 18 04/12/22 15:05 36.9 C 18 04/12/22 15:24 82 111/68 97 04/12/22 15:19 82 96 04/12/22 15:14 83 97 04/12/22 15:09 79 98 04/12/22 15:07 77 99/53 L 04/12/22 15:04 81 98 04/12/22 15:00 18 04/12/22 15:00 18 04/12/22 14:59 91 H 96 04/12/22 14:54 82 98 04/12/22 14:52 81 116/62 04/12/22 14:49 81 98 04/12/22 14:44 82 98 04/12/22 14:43 80 117/63 04/12/22 14:39 84 98 04/12/22 14:34 80 98 04/12/22 14:31 18 04/12/22 14:31 18 04/12/22 14:29 78 98 04/12/22 14:24 76 98 04/12/22 14:19 74 98 04/12/22 14:14 77 99 04/12/22 14:09 86 98 04/12/22 14:07 81 106/64 04/12/22 14:04 82 98 04/12/22 14:01 18 04/12/22 14:01 18 04/12/22 13:59 90 97 04/12/22 13:54 78 97 04/12/22 13:31 16 04/12/22 13:31 16 04/12/22 13:52 78 110/64 04/12/22 13:49 77 96 04/12/22 13:44 74 97 04/12/22 12:31 18 04/12/22 12:31 18 04/12/22 13:00 36.8 C 18 04/12/22 13:39 82 98 04/12/22 13:38 75 119/59 L 04/12/22 13:34 90 97 04/12/22 13:29 79 96 04/12/22 13:24 83 98 04/12/22 13:19 69 98 04/12/22 13:14 80 98 04/12/22 13:09 88 98 04/12/22 13:07 77 99/64 L 04/12/22 13:04 84 98 04/12/22 12:59 85 98 04/12/22 12:54 85 99 04/12/22 12:53 89 116/66 04/12/22 12:49 88 99 04/12/22 12:44 83 99 04/12/22 12:39 77 98 04/12/22 12:37 74 107/58 L 04/12/22 12:34 81 99 04/12/22 12:29 80 98 04/12/22 12:24 75 99 04/12/22 12:19 83 98 04/12/22 12:14 79 99 04/12/22 12:09 94 H 99 04/12/22 12:05 77 108/60 04/12/22 12:04 75 97 04/12/22 12:00 80 16 107/60 04/12/22 11:50 16 04/12/22 11:50 16 04/12/22 11:59 81 96 04/12/22 11:55 76 112/59 L 04/12/22 11:54 80 97 04/12/22 11:49 75 112/58 L 96 04/12/22 11:47 75 115/59 L 04/12/22 11:45 70 116/59 L 04/12/22 11:44 79 97 04/12/22 11:43 72 16 117/60 04/12/22 11:41 78 100/58 L 04/12/22 11:39 82 117/62 98 04/12/22 11:37 79 105/56 L 04/12/22 11:35 79 18 114/58 L 07/21/22 11:34 79 98 04/12/22 11:33 78 118/59 L 04/12/22 11:31 85 109/58 L 04/12/22 11:29 76 16 113/55 L 98 04/12/22 11:27 82 112/59 L 04/12/22 11:25 88 119/59 L 04/12/22 11:24 81 99 04/12/22 11:23 89 18 116/59 L 04/12/22 11:21 84 120/60 04/12/22 11:19 98 H 120/63 98 04/12/22 11:17 96 H 112/59 L 04/12/22 11:15 95 H 110/61 04/12/22 11:14 98 H 97 04/12/22 11:13 91 H 119/68 04/12/22 11:12 18 04/12/22 11:12 18 04/12/22 11:11 85 122/65 04/12/22 11:10 18 04/12/22 11:10 18 04/12/22 11:09 83 116/56 L 97 04/12/22 11:07 90 128/78 04/12/22 11:05 85 125/79 04/12/22 11:04 84 96 04/12/22 11:03 87 125/74 04/12/22 11:01 90 124/72 04/12/22 10:59 86 117/69 98 04/12/22 10:57 85 127/66 04/12/22 10:55 78 124/71 04/12/22 10:54 84 97 04/12/22 10:53 81 107/65 04/12/22 10:51 78 108/66 04/12/22 10:49 76 117/67 99 04/12/22 10:47 82 114/60 04/12/22 10:45 81 119/67 04/12/22 10:44 81 98 04/12/22 10:39 80 98 04/12/22 10:35 18 04/12/22 10:35 36.8 C 18 04/12/22 10:34 84 97 04/12/22 10:28 88 100 04/12/22 10:23 75 04/12/22 10:23 81 119/74 99 04/12/22 10:18 83 99 07/21/22 10:08 82 132/60 04/12/22 09:54 86 105/58 L 04/12/22 09:23 80 108/64 04/12/22 09:01 86 18 118/65 04/12/22 07:15 18 04/12/22 07:15 36.5 C 18 04/12/22 07:23 90 118/72
--- NOTE | 2022-04-12 18:53 | Delivery Summary ---
Vaginal Delivery Summary Date of Service April 12, 2022 Vaginal Delivery Summary Delivery Note live female LA NENA over intact perineum with Apgars 8/9 weight pending. Placenta delivered spontaneously and intact. No tears. EBL 200 ml. Final sponge and instrument count are correct. Mom and baby stable.
--- NOTE | 2022-04-12 20:24 | Anesthesia Procedure Note ---
Date of Service April 12, 2022 Anesthesia Post Epidural Note Vital Signs Vital Signs: Temp Pulse Resp BP Pulse Ox O2 Del Method 36.9 C 93 H 16 122/54 L 95 04/12/22 18:40 04/12/22 20:22 04/12/22 20:07 04/12/22 20:22 04/12/22 18:29 04/11/22 10:27 Pain Intensity Abdomen: Pain Intensity: 0 Notes Mental Status: alert / awake / arousable Nausea / Vomiting: adequately controlled Pain: adequately controlled Airway Patency, RR, SpO2: stable & adequate BP & HR: stable & adequate Hydration State: stable & adequate Neuraxial Anesthesia: was administered and sensory block is resolving Anesthetic Complications: no major complications apparent and Pt Satisfied with anesthetic care Epidural: Removed without complications and With tip intact
[2022-04-12] MEDS ORDERED: BENZOCAINE 20% AER SPR 82.5 GM CAN EXT ONE (20:37)
[2022-04-13] MEDS: ACETAMINOPHEN 500 MG TAB PO PRN ×2 (01:39→05:49)
[2022-04-13 08:01] LABS: Basophils # (auto) 0.03 K/uL (0-0.2); Basophils % (auto) 0.2 %; Eosinophils # (auto) 0.07 K/uL (0-0.50); Eosinophils % (auto) 0.6 %; Hematocrit (blood only) 33.1 % (34.1-44.9); Hemoglobin 10.9 g/dl (12.0-16.0); Immature Granulocytes # (auto) 0.11 K/uL (0.00-0.02); Immature Granulocytes % (auto) 0.9 %; Lymphocytes % (auto) 12.8 %; Mean Corpuscular Hemoglobin 30.2 pg (25.0-34.0); Mean Corpuscular Hgb Conc 32.9 g/dL (32.0-36.0); Mean Corpuscular Volume 91.7 fL (80.0-100.0); Mean Platelet Volume 10.8 fL (9.4-12.3); Monocytes # (auto) 1.21 K/uL (0.24-0.82); Monocytes % (auto) 9.7 %; Neutrophils # (auto) 9.46 K/uL (1.4-6.5); Neutrophils % (auto) 75.8 %; Platelet Count 161 K/uL (130-400); RDW Coefficient of Variation 13.9 % (11.5-14.5); RDW Standard Deviation 47.1 fL (36.4-46.3); Red Blood Count 3.61 M/uL (3.93-5.22); White Blood Count 12.48 K/ul (4.8-10.8)
--- NOTE | 2022-04-13 08:53 | Obstetrical Progress Note ---
Date of Service April 13, 2022 Assessment & Plan Admission and Anticipated Discharge Date Admission Date: April 11, 2022 Subjective Patient is seen and examined. She feels well, c/o uterine cramping and Tylenol only has not been helping. Desires something stronger. Ambulating without dizziness Voiding without difficulty Tolerating regular diet with out N&V Bleeding is minimal No fever/ chills/ CP/ SOB/ N&V/ Leg pain Breast feeding/ pumping without problems Vital Signs Temp Pulse Resp BP Pulse Ox 04/13/22 03:21 36.8 C 83 16 114/72 98 04/12/22 23:07 36.9 C 83 16 115/73 96 04/12/22 21:00 37.0 C 88 18 114/74 Lab Results 04/11/22 04/11/22 04/11/22 Range/Units 08:10 08:10 08:20 WBC 11.36 H (4.8-10.8) K/ul RBC 3.51 L (3.93-5.22) M/uL Hgb 10.7 L (12.0-16.0) g/dl Hct 31.4 L (34.1-44.9) % MCV 89.5 (80.0-100.0) fL MCH 30.5 (25.0-34.0) pg MCHC 34.1 (32.0-36.0) g/dL RDW Std Deviation 46.0 (36.4-46.3) fL RDW Coeff of Marisol 14.1 (11.5-14.5) % Plt Count 205 (130-400) K/uL MPV 11.1 (9.4-12.3) fL Immature Gran % (Auto) % Neut % (Auto) % Lymph % (Auto) % [place] % (Auto) % Eos % (Auto) % Baso % (Auto) % Neut # (Auto) (1.4-6.5) K/uL Lymph # (Auto) (1.2-3.4) K/uL [place] # (Auto) (0.24-0.82) K/uL Eos # (Auto) (0-0.50) K/uL Baso # (Auto) (0-0.2) K/uL Immature Gran # (Auto) (0.00-0.02) K/uL Sodium 136 (136-145) mmol/L Potassium 3.6 (3.5-5.1) mmol/L Chloride 106 (98-107) mmol/L Carbon Dioxide 21 (21-32) mmol/L Anion Gap 9 (3-11) BUN 10 (6-23) mg/dl Creatinine 0.54 L (0.6-1.2) mg/dl Est Cr Clr Drug Dosing Not Reportable Est GFR ( Amer) 143.7 ml/min Est GFR (Non-Af Amer) 124.0 ml/min BUN/Creatinine Ratio 18.5 (10-20) Glucose 99 (70-99(Fasting)) mg/dl POC Glucose 94 (70-99) mg/dl Calcium 8.3 L (8.5-10.1) mg/dl Total Bilirubin 0.3 (0.2-1.0) mg/dl AST 11 L (13-39) U/L ALT 11 (7-52) U/L Alkaline Phosphatase 125 H (34-104) U/L Total Protein 6.0 (6.0-8.3) gm/dl Albumin 3.4 (3.4-5.0) gm/dl Globulin 2.6 (2.5-4.0) gm/dl Albumin/Globulin Ratio 1.3 (0.9-2) 04/11/22 04/11/22 04/11/22 Range/Units 12:24 17:12 21:09 WBC (4.8-10.8) K/ul RBC (3.93-5.22) M/uL Hgb (12.0-16.0) g/dl Hct (34.1-44.9) % MCV (80.0-100.0) fL MCH (25.0-34.0) pg MCHC (32.0-36.0) g/dL RDW Std Deviation (36.4-46.3) fL RDW Coeff of Marisol (11.5-14.5) % Plt Count (130-400) K/uL MPV (9.4-12.3) fL Immature Gran % (Auto) % Neut % (Auto) % Lymph % (Auto) % [place] % (Auto) % Eos % (Auto) % Baso % (Auto) % Neut # (Auto) (1.4-6.5) K/uL Lymph # (Auto) (1.2-3.4) K/uL [place] # (Auto) (0.24-0.82) K/uL Eos # (Auto) (0-0.50) K/uL Baso # (Auto) (0-0.2) K/uL Immature Gran # (Auto) (0.00-0.02) K/uL Sodium (136-145) mmol/L Potassium (3.5-5.1) mmol/L Chloride (98-107) mmol/L Carbon Dioxide (21-32) mmol/L Anion Gap (3-11) BUN (6-23) mg/dl Creatinine (0.6-1.2) mg/dl Est Cr Clr Drug Dosing Est GFR ( Amer) ml/min Est GFR (Non-Af Amer) ml/min BUN/Creatinine Ratio (10-20) Glucose (70-99(Fasting)) mg/dl POC Glucose 83 79 80 (70-99) mg/dl Calcium (8.5-10.1) mg/dl Total Bilirubin (0.2-1.0) mg/dl AST (13-39) U/L ALT (7-52) U/L Alkaline Phosphatase (34-104) U/L Total Protein (6.0-8.3) gm/dl Albumin (3.4-5.0) gm/dl Globulin (2.5-4.0) gm/dl Albumin/Globulin Ratio (0.9-2) 04/12/22 04/12/22 04/12/22 Range/Units 01:05 05:18 09:05 WBC (4.8-10.8) K/ul RBC (3.93-5.22) M/uL Hgb (12.0-16.0) g/dl Hct (34.1-44.9) % MCV (80.0-100.0) fL MCH (25.0-34.0) pg MCHC (32.0-36.0) g/dL RDW Std Deviation (36.4-46.3) fL RDW Coeff of Marisol (11.5-14.5) % Plt Count (130-400) K/uL MPV (9.4-12.3) fL Immature Gran % (Auto) % Neut % (Auto) % Lymph % (Auto) % [place] % (Auto) % Eos % (Auto) % Baso % (Auto) % Neut # (Auto) (1.4-6.5) K/uL Lymph # (Auto) (1.2-3.4) K/uL [place] # (Auto) (0.24-0.82) K/uL Eos # (Auto) (0-0.50) K/uL Baso # (Auto) (0-0.2) K/uL Immature Gran # (Auto) (0.00-0.02) K/uL Sodium (136-145) mmol/L Potassium (3.5-5.1) mmol/L Chloride (98-107) mmol/L Carbon Dioxide (21-32) mmol/L Anion Gap (3-11) BUN (6-23) mg/dl Creatinine (0.6-1.2) mg/dl Est Cr Clr Drug Dosing Est GFR ( Amer) ml/min Est GFR (Non-Af Amer) ml/min BUN/Creatinine Ratio (10-20) Glucose (70-99(Fasting)) mg/dl POC Glucose 86 108 H 88 (70-99) mg/dl Calcium (8.5-10.1) mg/dl Total Bilirubin (0.2-1.0) mg/dl AST (13-39) U/L ALT (7-52) U/L Alkaline Phosphatase (34-104) U/L Total Protein (6.0-8.3) gm/dl Albumin (3.4-5.0) gm/dl Globulin (2.5-4.0) gm/dl Albumin/Globulin Ratio (0.9-2) 04/12/22 04/12/22 04/12/22 Range/Units 10:46 12:07 13:25 WBC (4.8-10.8) K/ul RBC (3.93-5.22) M/uL Hgb (12.0-16.0) g/dl Hct (34.1-44.9) % MCV (80.0-100.0) fL MCH (25.0-34.0) pg MCHC (32.0-36.0) g/dL RDW Std Deviation (36.4-46.3) fL RDW Coeff of Marisol (11.5-14.5) % Plt Count (130-400) K/uL MPV (9.4-12.3) fL Immature Gran % (Auto) % Neut % (Auto) % Lymph % (Auto) % [place] % (Auto) % Eos % (Auto) % Baso % (Auto) % Neut # (Auto) (1.4-6.5) K/uL Lymph # (Auto) (1.2-3.4) K/uL [place] # (Auto) (0.24-0.82) K/uL Eos # (Auto) (0-0.50) K/uL Baso # (Auto) (0-0.2) K/uL Immature Gran # (Auto) (0.00-0.02) K/uL Sodium (136-145) mmol/L Potassium (3.5-5.1) mmol/L Chloride (98-107) mmol/L Carbon Dioxide (21-32) mmol/L Anion Gap (3-11) BUN (6-23) mg/dl Creatinine (0.6-1.2) mg/dl Est Cr Clr Drug Dosing Est GFR ( Amer) ml/min Est GFR (Non-Af Amer) ml/min BUN/Creatinine Ratio (10-20) Glucose (70-99(Fasting)) mg/dl POC Glucose 87 85 76 (70-99) mg/dl Calcium (8.5-10.1) mg/dl Total Bilirubin (0.2-1.0) mg/dl AST (13-39) U/L ALT (7-52) U/L Alkaline Phosphatase (34-104) U/L Total Protein (6.0-8.3) gm/dl Albumin (3.4-5.0) gm/dl Globulin (2.5-4.0) gm/dl Albumin/Globulin Ratio (0.9-2) 04/12/22 04/12/22 04/12/22 Range/Units 14:15 15:11 16:09 WBC (4.8-10.8) K/ul RBC (3.93-5.22) M/uL Hgb (12.0-16.0) g/dl Hct (34.1-44.9) % MCV (80.0-100.0) fL MCH (25.0-34.0) pg MCHC (32.0-36.0) g/dL RDW Std Deviation (36.4-46.3) fL RDW Coeff of Marisol (11.5-14.5) % Plt Count (130-400) K/uL MPV (9.4-12.3) fL Immature Gran % (Auto) % Neut % (Auto) % Lymph % (Auto) % [place] % (Auto) % Eos % (Auto) % Baso % (Auto) % Neut # (Auto) (1.4-6.5) K/uL Lymph # (Auto) (1.2-3.4) K/uL [place] # (Auto) (0.24-0.82) K/uL Eos # (Auto) (0-0.50) K/uL Baso # (Auto) (0-0.2) K/uL Immature Gran # (Auto) (0.00-0.02) K/uL Sodium (136-145) mmol/L Potassium (3.5-5.1) mmol/L Chloride (98-107) mmol/L Carbon Dioxide (21-32) mmol/L Anion Gap (3-11) BUN (6-23) mg/dl Creatinine (0.6-1.2) mg/dl Est Cr Clr Drug Dosing Est GFR ( Amer) ml/min Est GFR (Non-Af Amer) ml/min BUN/Creatinine Ratio (10-20) Glucose (70-99(Fasting)) mg/dl POC Glucose 122 H 112 H 84 (70-99) mg/dl Calcium (8.5-10.1) mg/dl Total Bilirubin (0.2-1.0) mg/dl AST (13-39) U/L ALT (7-52) U/L Alkaline Phosphatase (34-104) U/L Total Protein (6.0-8.3) gm/dl Albumin (3.4-5.0) gm/dl Globulin (2.5-4.0) gm/dl Albumin/Globulin Ratio (0.9-2) 04/12/22 04/13/22 Range/Units 17:09 07:42 WBC 12.48 H (4.8-10.8) K/ul RBC 3.61 L (3.93-5.22) M/uL Hgb 10.9 L (12.0-16.0) g/dl Hct 33.1 L (34.1-44.9) % MCV 91.7 (80.0-100.0) fL MCH 30.2 (25.0-34.0) pg MCHC 32.9 (32.0-36.0) g/dL RDW Std Deviation 47.1 H (36.4-46.3) fL RDW Coeff of Marisol 13.9 (11.5-14.5) % Plt Count 161 (130-400) K/uL MPV 10.8 (9.4-12.3) fL Immature Gran % (Auto) 0.9 % Neut % (Auto) 75.8 % Lymph % (Auto) 12.8 % [place] % (Auto) 9.7 % Eos % (Auto) 0.6 % Baso % (Auto) 0.2 % Neut # (Auto) 9.46 H (1.4-6.5) K/uL Lymph # (Auto) 1.60 (1.2-3.4) K/uL [place] # (Auto) 1.21 H (0.24-0.82) K/uL Eos # (Auto) 0.07 (0-0.50) K/uL Baso # (Auto) 0.03 (0-0.2) K/uL Immature Gran # (Auto) 0.11 H (0.00-0.02) K/uL Sodium (136-145) mmol/L Potassium (3.5-5.1) mmol/L Chloride (98-107) mmol/L Carbon Dioxide (21-32) mmol/L Anion Gap (3-11) BUN (6-23) mg/dl Creatinine (0.6-1.2) mg/dl Est Cr Clr Drug Dosing Est GFR ( Amer) ml/min Est GFR (Non-Af Amer) ml/min BUN/Creatinine Ratio (10-20) Glucose (70-99(Fasting)) mg/dl POC Glucose 83 (70-99) mg/dl Calcium (8.5-10.1) mg/dl Total Bilirubin (0.2-1.0) mg/dl AST (13-39) U/L ALT (7-52) U/L Alkaline Phosphatase (34-104) U/L Total Protein (6.0-8.3) gm/dl Albumin (3.4-5.0) gm/dl Globulin (2.5-4.0) gm/dl Albumin/Globulin Ratio (0.9-2) PE: General: Alert, orientedx3, NAD Abd: soft, NT, fundus firm, below Umbilicus Perineum intact, Lochia rubra minimal Ext; NT, no edema AP: 31 yo s/p , ppd# 1 VSS Afebrile doing well Desires d/c tonight Continue routine care All questions were answered D/C home after 24 hours if meeting criteria Results & Data ([facility]) Vital Signs (Past 12 Hours) Vital Signs Temp Pulse Resp BP Pulse Ox 04/13/22 03:21 36.8 C 83 16 114/72 98 04/12/22 23:07 36.9 C 83 16 115/73 96 04/12/22 21:00 37.0 C 88 18 114/74
[2022-04-13] MEDS ORDERED: PANTOprazole 40 MG TAB PO SCH (09:00)
[2022-04-13] MEDS ORDERED: PRENATAL VITAMIN 1 TAB PO SCH (09:00)
[2022-04-13] MEDS ORDERED: NON-FORMULARY MEDICATION (Iron,Carbonyl-Vitamin C [Vitron-C] 65 mg iron- 125 mg tablet,del PO SCH (09:00)
[2022-04-13] MEDS: oxyCODONE/ACETAMINOPHEN 5mg/325mg TAB PO PRN ×3 (09:03→16:19)
[2022-04-13] MEDS: IBUPROFEN 600 MG TAB PO PRN ×3 (09:03→16:20)
[2022-04-13] MEDS ORDERED: DOCUSATE SODIUM 100 MG CAP PO SCH (09:15)
== END 2022-04-13 19:55 | disposition home or self-care (01) | DRG 807 ==
LOC: 4S1 07:34 → 4E2 04-12 20:45